=== PATIENT | female | born 1970 | race Caucasian/White ===

== ENCOUNTER → 2019-04-20 11:06 | Outpatient (CLI) | payer BC, SELFPAY ==
--- NOTE | ~2019-04-20 | MM_ITS ---
EXAMINATION: MM screening [facility]elson BI w matias HISTORY: Screening mammogram TECHNIQUE: Bilateral rotated lateral cc views. Craniocaudal and mediolateral oblique 3-D tomosynthesi s images were obtained and synthetic 2-D images were generated. CAD analysis was submitted and interp reted. COMPARISON: 08/16/2010 bilateral digital screening mammogram BREAST PARENCHYMAL COMPOSITION: FINDINGS: Multiple right breast masses are suggested. Scattered bilateral benign calcifications are noted. There is no evidence of suspicious mass, calcifi cation, or architectural distortion to suggest malignancy in the left breast. IMPRESSION: 1. Multiple right breast masses are suggested. 2. Diagnostic right mammogram and right breast ultrasound examination are recommended. BI-RADS Category 0: Incomplete: Needs additional imaging evaluation. Reviewed, dictated and finalized at location A. [employer] IMPRESSION: 1. Multiple right breast masses are suggested. 2. Diagnostic right mammogram and right breast ultrasound examination are recom mended. BI-RADS Category 0: Incomplete: Needs additional imaging evaluation.
== END ==
PROVIDERS: PCP Family Medicine; Visit Provider Advanced Practice Midwife
DX: Z12.31 Encounter for screening mammogram for malignant neoplasm of breast (principal); R92.8 Other abnormal and inconclusive findings on diagnostic imaging of breast
CPT/HCPCS: 77063; 77067

== ENCOUNTER 2019-05-17 00:45 | Day surgery (SDC) | payer BC, SELFPAY ==
[2019-05-14 10:00] VITALS: BMI 21.2
[2019-05-17 07:31] VITALS: BP 101/56; PULSE 64; RESP 15; TEMP 37.3; O2SAT 100
[2019-05-17] MEDS: LACTATED RINGERS 1,000 ML 150 ML IV CONT (07:44)
[2019-05-17 07:47] VITALS: BMI 21.4
--- NOTE | 2019-05-17 07:47 | WPDANESEPPF ---
Anes - Initial Pre Proc Eval Procedure: Operation Date: 05/17/19 08:30 Proposed Procedures p Screening Colonoscopy - Nehemiah Dolan MD Date/Time: 05/17/19 07:47 Surgeon: Nehemiah Dolan MD Pre Op Diagnosis: neoplasm screening Patient Data Age: 49 Gender: F Height: 1.65 m Weight: 58 kg Last Vital Signs Temp 37.3 C 05/17/19 07:31 Pulse 64 05/17/19 07:31 Resp 15 05/17/19 07:31 BP 101/56 L 05/17/19 07:31 Pulse Ox 100 05/17/19 07:31 Allergies Allergy/AdvReac Type Severity Reaction Status Date / Time No Known Allergies Allergy Verified 05/17/19 07:29 Home Medications Medication Instructions Recorded Confirmed Type No Home Medications 05/14/19 05/17/19 History Patient hx anesthesia problems: none Family hx anesthesia problems: none [facility] Family History Family History (Updated 11/07/13 @ 07:13 by DOCTOR UNKNOWN) Father Malignant neoplasm of prostate Social History Social History Alcohol intake: never Anes - Eval Final PreProcedure Day of Procedure 05/17/19 07:47 Patient weight: normal Heart: regular rate and rhythm Lungs: clear to auscultation and normal air movement Airway: Mallampati scale class II Neurological: alert and oriented Last oral intake: >/= 8 hours ASA classification: I Emergent: no Anesthetic plan: proceed Anesthesia type and monitoring: general GIVS Informed Consent: The patient's anesthetic plan and its attendant risks and benefits were discussed with the patient/family/POA. Questions were solicited and answers provided to the satisfaction of the patient/family/POA.
--- NOTE | 2019-05-17 08:12 | WPDGICN ---
Assessment and Plan Additional Plan This is a 49-year-old white female patient seen in evaluation at the request of Dr. Colin Ortiz. Patient presents for screening colonoscopy. Her current weight appetite bowel movements are normal. She denies abdominal pain. Her bowel habits are regular. She does have a brief history of bright red blood per rectum that occurred 3-4 weeks ago. She denies any pain. Family history noncontributory. Past medical history is significant for hemorrhoid surgery in the past. She has on no home medications. No known drug allergies. Physical exam reveals her to be alert. Vital signs stable. HEENT exam unremarkable. Lungs are clear to auscultation and percussion. Heart is without murmur or extra sounds. Abdominal exam bowel sounds are present soft nontender with no organomegaly. Digital external rectal exam is normal. Impression 1. Neoplasia screening. 2. Internal hemorrhoids. She has had previous surgery. These may bleed on occasion. High-fiber diet is advised fiber supplements may be of some benefit. Plan is for screening colonoscopy today. GI Consult Note Consult date/time: 05/17/19 08:12 HPI: Roberta Rodriguez is a 49 year old female [facility] Family History Family History (Updated 11/07/13 @ 07:13 by DOCTOR UNKNOWN) Father Malignant neoplasm of prostate Social History Social History Alcohol intake: never Meds Home Medications and Allergies Home Medications Medication Instructions Recorded Confirmed Type No Home Medications 05/14/19 05/17/19 History Allergies Allergy/AdvReac Type Severity Reaction Status Date / Time No Known Allergies Allergy Verified 05/17/19 07:29 Vital Signs Vital Signs - 24 hr 05/17/19 07:31 Temperature 37.3 C Pulse Rate 64 Respiratory Rate 15 Blood Pressure 101/56 L Pulse Oximetry 100
[2019-05-17 08:40] VITALS: BP 82/45; PULSE 66; RESP 16; O2SAT 98
[2019-05-17 08:50] VITALS: BP 87/48; PULSE 66; RESP 16; O2SAT 98
[2019-05-17 09:00] VITALS: BP 99/63; PULSE 66; RESP 16; O2SAT 98
--- NOTE | 2019-05-17 09:18 | SUR.PHASEII ---
0910 PT UP TO CHAIR TO GET DRESSED, BECAME VERY EMOTIONAL AND CRYING. STATES SHE DOESNT KNOW WHY, EXPLAINED IT IS A RESPONSE TO THE ANESTHESIA AND IT WILL PASS, GIVEN WARM BLANKET AND RECLINED. 0920 PT FEELS BETTER NOT LONGER CRYING, DENIES ANY DISCOMFORT AND FEELS READY TO GO HOME/
== END 2019-05-17 09:25 | disposition home or self-care (01) ==
PROVIDERS: PCP Family Medicine; Visit Provider Internal Medicine Gastroenterology
PROC: 0DJD8ZZ Inspection of Lower Intestinal Tract, Via Natural or Artificial Opening Endoscopic (ICD-10-PCS; CPT 45378; principal; 2019-05-17 08:30)
DX: Z12.11 Encounter for screening for malignant neoplasm of colon (principal); K64.8 Other hemorrhoids
CPT/HCPCS: 45378; J2704; J7120

== ENCOUNTER 2022-06-15 16:14 | Outpatient (CLI) | payer BC, SELFPAY ==
--- NOTE | ~2022-06-15 | XR_ITS ---
EXAMINATION: XR chest 2V Exam Date/Time: 06/15/2022 16:25 CDT HISTORY: SOB Comparison: None available. RESULT: Lines, tubes, and devices: None. Lungs and pleura: Biapical pleural scarring. Hemidiaphragm flattening. Mild diffuse reticulonodular opacities with cuffing. Cardiomediastinal silhouette: Stable. Other: No acute osseous or upper abdominal finding. IMPRESSION: Pulmonary opacities may represent bronchiolitis, as can be seen with atypical infection, asthma, aspi ration, and small airways disease. Emphysematous changes. Reviewed, dictated and finalized at location K. IMPRESSION: Pulmonary opacities may represent bronchiolitis, as can be seen with atypical i nfection, asthma, aspiration, and small airways disease. Emphysematous changes.
== END 2022-06-15 16:15 | disposition home or self-care (01) ==
PROVIDERS: PCP Family Medicine
DX: R06.02 Shortness of breath (principal); R91.8 Other nonspecific abnormal finding of lung field
CPT/HCPCS: 71046

== ENCOUNTER 2022-08-04 16:52 | Outpatient (CLI) | payer BC, SELFPAY ==
--- NOTE | ~2022-08-04 | XR_ITS ---
EXAMINATION: XR chest 2V DATE: 08/04/2022 17:14 INDICATION: Shortness of breath. Chest pressure. TECHNIQUE: Frontal and lateral views of the chest were obtained. COMPARISON: Chest 2 views 06/15/2022 FINDINGS: There is mild scarring at the lung apices. Calcified pulmonary nodules and calcified hilar lymph nodes are consistent with old granulomatous disease. No pleural effusion or pneumothorax. The h eart size is normal. IMPRESSION: 1. Stable mild scarring at the lung apices. Reviewed, dictated and finalized at location E.
== END 2022-08-04 16:53 | disposition home or self-care (01) ==
LOC: ANHIMG 16:57
PROVIDERS: PCP Family Medicine
DX: R06.02 Shortness of breath (principal); R91.8 Other nonspecific abnormal finding of lung field
CPT/HCPCS: 71046

== ENCOUNTER → 2022-08-15 16:18 | Outpatient (CLI) | payer BC, SELFPAY ==
--- NOTE | ~2022-08-15 | MM_ITS ---
EXAMINATION: MM screening [facility] BI w matias HISTORY: Screening TECHNIQUE: Craniocaudal and mediolateral oblique 3-D tomosynthesis images were obtained and synthetic 2-D images were generated. CAD analysis was submitted and interpreted. COMPARISON: Comparison to multiple prior studies sequentially, with oldest reviewed study dated 09/01. BREAST PARENCHYMAL COMPOSITION: The breasts are heterogeneously dense, which may obscure small masses FINDINGS: There is a 1.4 x 0.9 cm mass in the central aspect of the right breast, midposterior depth. There is a small 3 mm mass located lower inner quadrant in the right breast, anterior depth. There a re small scattered masses in the left breast. IMPRESSION: 1. New bilateral breast masses. 2. Additional mammographic views and possible breast ultrasound are recommended. BI-RADS Category 0: Incomplete: Needs additional imaging evaluation. Reviewed, dictated and finalized at location A. IMPRESSION: 1. New bilateral breast masses. 2. Additional mammographic views and possible breast ultrasound are recommended . BI-RADS Category 0: Incomplete: Needs additional imaging evaluation.
== END ==
PROVIDERS: PCP Family Medicine; Visit Provider Obstetrics & Gynecology
DX: Z12.31 Encounter for screening mammogram for malignant neoplasm of breast (principal); N63.14 Unspecified lump in the right breast, lower inner quadrant; N63.20 Unspecified lump in the left breast, unspecified quadrant
CPT/HCPCS: 77063; 77067

== ENCOUNTER 2022-09-16 11:14 | Outpatient (CLI) | payer BC, SELFPAY ==
--- NOTE | ~2022-09-16 | MMUS_ITS ---
EXAMINATION: MM diagnostic nelson BI w matias, US breast RT limited HISTORY: Bilateral breast masses on screening mammogram TECHNIQUE: Additional 3-D tomosynthesis images of the breasts were performed and synthetic 2-D images were generated. CAD analysis was submitted and interpreted. High resolution limited right breast ult rasound was performed. COMPARISON: 08/15/2022, 04/20/2019, 02/26/2018 BREAST PARENCHYMAL COMPOSITION: The breasts are heterogeneously dense, which may obscure small masses . FINDINGS: MAMMOGRAPHIC FINDINGS: Spot compression views demonstrate bilateral breast masses which are either stable or have a waxing a nd waning appearance, consistent with benign findings. No suspicious calcification or architectural d istortion are identified. ULTRASOUND: There is an 11 mm oval, circumscribed, parallel, hypoechoic mass with no posterior features or manager of international al vascularity in the subareolar aspect of the right breast. A 7 mm x 6 mm mass with similar sonograp hic features is seen at the 11:00 location near the nipple. Also seen is a 9 mm x 4 mm mass with jose lar sonographic features at the 11:00 location 1 cm from the nipple. IMPRESSION: 1. Probably benign right breast masses. 2. Recommend 6 month follow-up right breast ultrasound. BI-RADS category 3, probably benign findings. Reviewed, dictated and finalized at location A. IMPRESSION: 1. Probably benign right breast masses. 2. Recommend 6 month follow-up right breast ultrasound. BI-RADS category 3, probably benign findings.
== END 2022-09-16 11:15 | disposition home or self-care (01) ==
PROVIDERS: PCP Family Medicine; Visit Provider Obstetrics & Gynecology
DX: R92.8 Other abnormal and inconclusive findings on diagnostic imaging of breast (principal)
CPT/HCPCS: 76642; 77061; 77062; 77065; 77066; G0279

== ENCOUNTER 2023-03-09 10:52 | Outpatient (CLI) | payer BC, SELFPAY ==
--- NOTE | ~2023-03-09 | US_ITS ---
US breast RT limited DATE: 03/09/2023 11:36 INDICATION: Six-month follow-up of probably benign right breast masses TECHNIQUE: Targeted real-time and color flow imaging and areas reported on 09/16/2022 right Limited brandan ast ultrasound examination COMPARISON: 09/16/2022 diagnostic bilateral mammogram and limited right breast ultrasound FINDINGS: Subareolar: Parallel circumscribed hypoechoic 13 x 6 x 12 mm lesion with through transmission and pos terior enhancement, no internal vascularity, benign in appearance, stable since 09/16/2022 11:00 1 cm from nipple: 3.8 x 4.3 x 8 mm circumscribed hypoechoic lesion without shadowing, mildly di minished in size since 09/16/2022 11:00 near nipple: Parallel circumscribed oval hypoechoic 11 x 6 x 9 mm lesion with through transmiss ion and posterior enhancement, unchanged since 09/16/2022 IMPRESSION: BI-RADS Category 2: Benign findings Regulation: Routine mammographic screening Reviewed, dictated and finalized at Location A. Reviewed, dictated and finalized at location A. STRIPPER
== END 2023-03-09 10:53 | disposition home or self-care (01) ==
PROVIDERS: PCP Family Medicine; Visit Provider Obstetrics & Gynecology
DX: R92.8 Other abnormal and inconclusive findings on diagnostic imaging of breast (principal)
CPT/HCPCS: 76642